=== PATIENT | male | born 1975 | race Caucasian/White ===

== ENCOUNTER 2021-03-13 08:11 | Emergency (ER) | payer OTHER ==
[2021-03-13] MEDS ORDERED: Bacitracin Oint 1 GM U/D Packet TOP ONE (08:34)
[2021-03-13] MEDS ORDERED: Lidocaine 1% with EPINEPHrine 1:100,000 50 ML MDV INFILT ONE (08:34)
[2021-03-13] MEDS ORDERED: Diphtheria,Pertussis(Acell),Tetanus Vaccine 0.5 ML Syringe IM ONE (08:35)
== END 2021-03-13 09:16 | disposition home or self-care (01) ==
LOC: JP.ED 08:11
DX: S61.210A Laceration without foreign body of right index finger without damage to nail, initial encounter (principal); Z23 Encounter for immunization; W26.0XXA Contact with knife, initial encounter
CPT/HCPCS: 12002; 90471; 90715; 99282-25